=== PATIENT | male | born 1950 | race Caucasian/White ===

== ENCOUNTER → 2016-05-06 | Outpatient (CLI) | payer MEDICARE, OTHER ==
--- NOTE | 2016-05-06 11:48 | DX ---
Lumbar Spine, Two Views History: M48.06, lumbar fusion. Comparison: None available. Findings: Bilateral transpedicular screws and fusion rods at the L2 and L3 levels. Interbody disk fus ion plugs at L2-L3, L3-L4 and L4-L5 levels. Posterior bony fusion masses from L3 through L5-S1. No lumbar compression fractures. Atherosclerotic abdominal aorta. L1-L2: Moderate degenerative disk disease and degenerative retrolisthesis 5 mm with endplate scleroti c changes and osteophytes. L2-L3: Postsurgical changes, posterior fusion hardware and 4 mm retrolisthesis. Normal alignment from L3-L4 through L5/S1. Impression: 1. Postsurgical changes from L2 through L5 with hardware intact. 2. L1-L2: Moderate degenerative disk disease and degenerative retrolisthesis. 3. L2-L3: Post diskectomy and fusion with retrolisthesis.
== END ==
LOC: FIMAGING 11:11
PROVIDERS: ATTEND Physician Assistant Surgical
DX: Z09 Encounter for follow-up examination after completed treatment for conditions other than malignant neoplasm (principal); Z98.1 Arthrodesis status; M51.36 Other intervertebral disc degeneration, lumbar region; M51.26 Other intervertebral disc displacement, lumbar region

== ENCOUNTER → 2016-06-19 | Outpatient (CLI) | payer OTHER | LOC: FIMAGING 13:39 | PROVIDERS: ATTEND Physician Assistant Surgical | DX: Z09 Encounter for follow-up examination after completed treatment for conditions other than malignant neoplasm (principal); Z98.1 Arthrodesis status ==

== ENCOUNTER → 2016-09-26 | Outpatient (CLI) | payer OTHER | LOC: FLAB 10:08 | PROVIDERS: ATTEND Physician Assistant Surgical | DX: M51.36 Other intervertebral disc degeneration, lumbar region (principal); S33.110A Subluxation of L1/L2 lumbar vertebra, initial encounter; Z98.1 Arthrodesis status ==

== ENCOUNTER → 2017-03-09 | Outpatient (CLI) | payer OTHER | LOC: FIMAGING 12:55 → EDSTATUS 12:57 | PROVIDERS: ATTEND Neurological Surgery | DX: Z98.1 Arthrodesis status (principal) ==